=== PATIENT | female | born 1960 | race Caucasian/White ===

== ENCOUNTER 2021-12-24 08:48 | Emergency (ER) | payer OTHER ==
[~2021-12-24 08:48] MED LIST: CERTAGEN1 EACH PO; LISINOPRIL-HCT1 EAC2 PO; MAG-OXIDE 400M400 MG PO; NEXIUM40 MG PO; OS-CAL500 MG PO; PERCOCET 5-3251 EACH PO; PHENERGAN12.5 M1 PO; PRILOSEC20 MG PO; PROBIOTIC1 EAC1 PO; PROBIOTIC1 EAC3 PO; REGLAN10 MG PO; ZOFRAN4 MG PO
[2021-12-24 09:25] LABS: BASOPHIL 0.7 % (0-2); EOSINOPHIL 2.3 % (0-5); HCT 38.1 % (37.0-47.0); LYMPHOCYTE 18.1 % (15-48); MCHC 36.7 g/dL (32.0-36.0); MCV 95.3 fL (78.0-100.0); MONOCYTE 11.6 % (0-12); MPV 8.3 fL (6.0-9.5); NEUTROPHIL 66.8 % (41-80); NRBC 0; PLT 406 K/uL (150-400); RDW 11.5 % (11.5-14.0); WBC 7.7 K/uL (4.0-10.5)
[2021-12-24 10:01] LABS: ALBUMIN 3.5 g/dL (3.4-5.0); ALKALINE PHOSHATASE 96 U/L (46-116); ALT 27 U/L (14-59); AST 18 U/L (15-37); BILIRUBIN - TOTAL 0.5 mg/dL (0.2-1.0); BUN 7 mg/dL (7-18); BUN/CREAT RATIO (CALC) 13.5 RATIO; CHLORIDE 91 mmol/L (98-107); CO2 (BICARBONATE) 30 mmol/L (21-32); CREATININE 0.52 mg/dL (0.51-0.95); GLOBULIN (CALCULATION) 3.4 g/dL; GLUCOSE 123 mg/dL (74-106); LIPASE 78 U/L (73-393); POTASSIUM 3.5 mmol/L (3.5-5.1); TOTAL PROTEIN 6.9 g/dL (6.4-8.2)
[2021-12-24 10:02] LABS: ACETAMINOPHEN (TYLENOL) < 2.0 ug/mL (10.0-30.0)
[2021-12-24 10:15] LABS: BILIRUBIN NEGATIVE (NEGATIVE); BLOOD 1+ Ery/uL (NEGATIVE); CLARITY HAZY (CLEAR); COLOR YELLOW (YELLOW); GLUCOSE (U) NORMAL (NORMAL); LEUKOCYTES NEGATIVE Leu/uL (NEGATIVE); NITRITE NEGATIVE (NEGATIVE); PROTEIN TRACE (LOW) mg/dL (NEGATIVE); SPECIFIC GRAVITY 1.015 (1.001-1.030); UROBILINOGEN 0.2 mg/dL (0.2-1.0); pH 7.5 (5.0-9.0)
[2021-12-24 10:27] LABS: AMPHETAMINES NEGATIVE (NEGATIVE); BARBITURATES NEGATIVE (NEGATIVE); ECSTASY (MDMA) NEGATIVE (NEGATIVE); MARIJUANA (THC) POSITIVE (NEGATIVE); METHADONE NEGATIVE (NEGATIVE); OPIATES NEGATIVE (NEGATIVE); OXYCODONE NEGATIVE (NEGATIVE)
[2021-12-24 10:35] LABS: AMORPHOUS URATES CRYSTALS MODERATE; BACTERIA TRACE; URINARY RBC RARE; URINARY WBC RARE
[2021-12-24 12:48] LABS: INR 0.99 (0.9-1.2); PROTHROMBIN TIME 12.5 SECONDS (11.8-13.4); PTT 28.6 SECONDS (24.4-34.7)
[2021-12-24] MEDS ORDERED: SEROQUEL50 MG PO (18:33)
== END 2021-12-24 19:08 | disposition home or self-care (01) ==
LOC: FER 08:48
PROVIDERS: Internal Medicine
DX: F29 Unspecified psychosis not due to a substance or known physiological condition (principal); E87.1 Hypo-osmolality and hyponatremia; F12.90 Cannabis use, unspecified, uncomplicated; I10 Essential (primary) hypertension; F17.210 Nicotine dependence, cigarettes, uncomplicated; Z79.899 Other long term (current) drug therapy
CPT/HCPCS: 36415; 70450; 70551; 71250; 80053; 80305; 81001; 82140; 83605; 83690; 84145; 84439; 84443; 84484; 85025; 85610; 85730; 96372; G0480; J0696; J2060; J7030

== ENCOUNTER 2022-01-20 15:15 | Emergency (ER) | payer OTHER ==
[~2022-01-20 15:15] MED LIST changes: +SEROQUEL50 MG PO
== END 2022-01-20 15:26 | disposition left against medical advice (07) ==
LOC: FER 15:15
DX: Z53.21 Procedure and treatment not carried out due to patient leaving prior to being seen by health care provider (principal)
CPT/HCPCS: 99281